=== PATIENT | male | born 1970 | race Caucasian/White ===

== ENCOUNTER 2020-12-19 01:44 | Outpatient (CLI) | payer BC, SELFPAY ==
[2020-12-19 18:12] LABS: SARS-CoV-2 RNA PCR Negative
== END 2020-12-19 01:45 | disposition home or self-care (01) ==
LOC: ANHCOVIDDT 01:44
PROVIDERS: Visit Provider Internal Medicine Gastroenterology
DX: Z01.812 Encounter for preprocedural laboratory examination (principal); Z20.822 Contact with and (suspected) exposure to COVID-19
CPT/HCPCS: C9803; U0003; U0005

== ENCOUNTER 2020-12-22 00:47 | Day surgery (SDC) | payer BC, SELFPAY ==
[2020-12-07 14:55] VITALS: BMI 27.1
--- NOTE | 2020-12-20 13:28 | WPDANESEPPF ---
Anes - Initial Pre Proc Eval Procedure: Operation Date: 12/22/20 08:00 Proposed Procedures p Colonoscopy - Holger Dominguez MD Date/Time: 12/20/20 13:28 Surgeon: Holger Dominguez MD Pre Op Diagnosis: Occult G I Bleed Patient Data Age: 50 Gender: M Height: 1.88 m Weight: 96 kg Allergies Allergy/AdvReac Type Severity Reaction Status Date / Time Penicillins Allergy Verified 12/07/20 15:01 Home Medications Medication Instructions Recorded Confirmed Type Cbd Oil DAILY 12/07/20 History Human Growth Hormone 1 tab-cap PO DAILY 12/07/20 History Multivitamin-Isogenics 1 PO DAILY 12/07/20 History Sinus Support 1 tab-cap PO DAILY 12/07/20 History aspirin 81 mg PO DAILY 12/07/20 12/07/20 History cinnamon bark [Cinnamon] 500 mg PO DAILY 12/07/20 12/07/20 History Patient hx anesthesia problems: none Family hx anesthesia problems: none PMFSH Social History Social History Smoking status: Never smoker Alcohol intake: current Alcohol use details: Rarely Living arrangements: alone Gender identity (if verbalized by the patient): Male Spiritual care concerns: No Anes - Eval Final PreProcedure Day of Procedure 12/20/20 13:28 Patient weight: overweight Heart: regular rate and rhythm Lungs: clear to auscultation and normal air movement Airway: Mallampati scale class III Neurological: alert and oriented Last oral intake: >/= 8 hours ASA classification: I Emergent: no Anesthetic plan: proceed Anesthesia type and monitoring: general GIVS and standard monitoring Informed Consent: The patient's anesthetic plan and its attendant risks and benefits were discussed with the patient/family/POA. Questions were solicited and answers provided to the satisfaction of the patient/family/POA.
[2020-12-22 06:52] VITALS: BP 138/84; PULSE 94; RESP 18; TEMP 36.3; O2SAT 98
[2020-12-22] MEDS: LACTATED RINGERS 1,000 ML 150 ML IV CONT (07:05)
--- NOTE | 2020-12-22 08:07 | WPDGICN ---
Assessment and Plan Assessment and plan (1) Encounter for screening colonoscopy: Code(s): Z12.11 - Encounter for screening for malignant neoplasm of colon Status: Acute Assessment and Plan: Patient presents for screening colonoscopy. This is indicated because of his age. Patient also recently had positive FIT test. Suggesting occult blood in stool. Further recommendations will be given after endoscopy. GI Consult Note Consult date/time: 12/22/20 08:07 HPI: Diony Shin is a 50 year old male Presents for screening colonoscopy. Patient has never had a colonoscopy previously. He recently had screening FIT test that was felt to be positive for occult blood. Patient denies any obvious blood in his stools. He has reports that his weight appetite bowel movements are normal. Patient denies abdominal pain. He has had no bleeding. Patient's family history is noncontributory. Review of Systems Review of Systems: All systems reviewed & are unremarkable except as noted in HPI and below PMFSH Social History Social History Smoking status: Never smoker Alcohol intake: current Alcohol use details: Rarely Living arrangements: alone Gender identity (if verbalized by the patient): Male Spiritual care concerns: No Meds Home Medications and Allergies Home Medications Medication Instructions Recorded Confirmed Type Cbd Oil DAILY 12/07/20 History Human Growth Hormone 1 tab-cap PO DAILY 12/07/20 History Multivitamin-Isogenics 1 PO DAILY 12/07/20 History Sinus Support 1 tab-cap PO DAILY 12/07/20 History aspirin 81 mg PO DAILY 12/07/20 12/07/20 History cinnamon bark [Cinnamon] 500 mg PO DAILY 12/07/20 12/07/20 History Allergies Allergy/AdvReac Type Severity Reaction Status Date / Time Penicillins Allergy Verified 12/07/20 15:01 Vital Signs Vital Signs - 24 hr 12/22/20 06:52 Temperature 97.4 F L Pulse Rate 94 Respiratory Rate 18 Blood Pressure 138/84 Pulse Oximetry 98 Exam Narrative: Exam Narrative: Physical exam reveals patient to be alert. Vital signs stable. HEENT exam is unremarkable. Lungs are clear to auscultation and percussion. Heart is without murmur or extra sounds. Abdominal exam bowel sounds are present soft nontender with no organomegaly. Digital external rectal exam is normal.
[2020-12-22 08:38] VITALS: BP 112/72; PULSE 83; RESP 20; O2SAT 96
[2020-12-22 08:48] VITALS: BP 129/81; PULSE 73; RESP 19; O2SAT 97
[2020-12-22 08:58] VITALS: BP 131/90; PULSE 64; RESP 22; O2SAT 100
== END 2020-12-22 09:14 | disposition home or self-care (01) ==
PROVIDERS: PCP Family Medicine Adolescent Medicine; Visit Provider Internal Medicine Gastroenterology
PROC: 0DJD8ZZ Inspection of Lower Intestinal Tract, Via Natural or Artificial Opening Endoscopic (ICD-10-PCS; CPT 45378; principal; 2020-12-22 08:00)
DX: Z12.11 Encounter for screening for malignant neoplasm of colon (principal); R19.5 Other fecal abnormalities; K63.5 Polyp of colon; K64.8 Other hemorrhoids; K57.30 Diverticulosis of large intestine without perforation or abscess without bleeding; Z79.82 Long term (current) use of aspirin
CPT/HCPCS: 45385; 88305; J2704; J7120